=== PATIENT | male | born 1990 | race Caucasian/White ===

== ENCOUNTER 2024-06-03 14:05 | Emergency (ER) | payer OTHER, SELFPAY ==
[2024-06-03 14:13] VITALS: BP 134/90
--- NOTE | 2024-06-03 14:13 | ED.GENMED ---
ED Provider Triage
<Maria Luz Sanabria PA-C - Last Filed: 06/03/24 14:17>
-
Patient seen by provider in Triage?: Seen in Triage
Attestation: A medical screening examination has been initiated by a qualified medical provider. Based on the assessment performed at this time, it has been determined that an emergent medical condition may exist and the patient has been informed
that further medical evaluation and possible additional diagnostic testing may be needed.
HPI: 33yoM here with a FB to the L eye. C/o L eye pain, FB sensation, and blurred vision x 1 week. Seen at [facility] last night and found to have a 'cast iron' in his eye. FB unable to be removed. He was referred to ophthalmology but they would
not see him today without a referral.
GENERAL: Alert , in no apparent distress
EYE: No visual abnormalities.
NECK: Trachea midline
ENT: No visible abnormalities.
LUNGS: No acute respiratory distress
NEUROLOGICAL: Alert and oriented
SKIN: Skin intact. No visible changes.
MUSCULOSKELETAL: Moving extremities normally
PSYCH: Normal and appropriate interaction.
This is a medical evaluation conducted in person to initiate diagnostic evaluation and provide initial therapeutics. Please see further documentation by the treating clinician.
Injection to L eye noted on exam. No signs of globe rupture.
History of Present Illness
<Maria Luz Sanabria PA-C - Last Filed: 06/03/24 14:17>
General
Chief Complaint: Eye Problems
Time Seen by Provider: 06/03/24 15:28
<Tunde Barlow PA-C - Last Filed: 06/03/24 16:29>
General
Source: patient
History of Present Illness
History of Present Illness:
33-year-old male presenting to the emergency department for evaluation after he accidentally got a foreign body into his left eye about 1 week ago while at work, had mild discomfort but this gradually worsened over the weekend, went to [facility] who was unable to remove the foreign body so patient left, attempted to go to a ophthalmology office but due to insurance issues was unable to be seen so decided to come to the emergency department instead here. Patient notes
continued pain, redness, tearing and blurred vision. He states that his tetanus status was updated at [facility] and they gave him an antibiotic ointment which she has been using. He denies any fevers or other infectious symptoms.
Past History
<Maria Luz Sanabria PA-C - Last Filed: 06/03/24 14:17>
Past History
ED Past Medical History: Psychiatric (ADHD, anxiety) and Other (Chronic chest wall pain)
ED Past Surgical History: Cardiac (Tricuspid repair March 2013), Orthopedic and Other (Traumatic splenic laceration, pneumothorax with chest tube insertion January 2013)
Social History
Tobacco: Smoker
Alcohol: None
Personal: Single
Living: with family
Employment: Not employed
<Tunde Barlow PA-C - Last Filed: 06/03/24 16:29>
Social History
Drug: None
Review of Systems
<Tunde Barlow PA-C - Last Filed: 06/03/24 16:29>
Review of Systems
All Other Systems: ROS reviewed and negative except as documented in HPI and ROS
Phy Exam
<Tunde Barlow PA-C - Last Filed: 06/03/24 16:29>
Physical Exam
Physical Exam:
GENERAL: Alert , in no apparent distress
EYE: Left eye conjunctival injection and tearing, pupils 4 mm bilateral, PERRL, EOMI, no periorbital erythema, edema or tenderness. Tetracaine drops instilled with significant relief of pain. Small approximate 1 mm foreign body noted just over the
pupil of the left eye
VA: Right Eye 20/30, Left eye 20/50, both eyes 20/20
Head: Normocephalic atraumatic
NECK: Supple,
ENT: mmm.
LUNGS: no acute respiratory distress
NEUROLOGICAL: Alert and oriented
SKIN: Warm and dry, skin intact.
MUSCULOSKELETAL: well perfused.
PSYCH: Normal and appropriate interaction.
Scores
<Tunde Barlow PA-C - Last Filed: 06/03/24 16:29>
Heart Failure Risk
Heart Failure Risk Score: Not Applicable
Heart Score for Chest Pain Patients
STEMI patient?: Not applicable
Withdrawal Assessment of Alcohol
Withdrawal Assessment Completed?: Not applicable
Course
<Maria Luz Sanabria PA-C - Last Filed: 06/03/24 14:17>
Orders/Labs/Results
Orders:
Orders
06/03/24 16:22
Case Management Consult ONCE
Case Management Consult: Discharge Planning
Vital Signs
Initial and Last Documented VS:
Initial Vital Signs
Temp Pulse Resp BP Pulse Ox
98.8 F 85 18 134/90 98
06/03/24 14:13 06/03/24 14:13 06/03/24 14:13 06/03/24 14:13 06/03/24 14:13
Last Documented Vital Signs
Temp Pulse Resp BP Pulse Ox
98.8 F 85 18 134/90 98
06/03/24 14:13 06/03/24 14:13 06/03/24 14:13 06/03/24 14:13 06/03/24 14:13
<Tunde Barlow PA-C - Last Filed: 06/03/24 16:29>
Orders/Labs/Results
Orders:
Orders
06/03/24 16:22
Case Management Consult ONCE
Case Management Consult: Discharge Planning
Vital Signs
Initial and Last Documented VS:
Initial Vital Signs
Temp Pulse Resp BP Pulse Ox
98.8 F 85 18 134/90 98
06/03/24 14:13 06/03/24 14:13 06/03/24 14:13 06/03/24 14:13 06/03/24 14:13
Last Documented Vital Signs
Temp Pulse Resp BP Pulse Ox
98.8 F 85 18 134/90 98
06/03/24 14:13 06/03/24 14:13 06/03/24 14:13 06/03/24 14:13 06/03/24 14:13
<Tunde Barlow PA-C - Last Filed: 06/03/24 16:29>
MDM/Problems Addressed
MDM/Problems Addressed:
33-year-old male presenting to the emergency department for evaluation after sustaining foreign body to the left eye which patient believes his cast iron. Patient believes that this has been in his left eye for around 1 week. Concern for rust ring
as well as prolonged foreign body within the left eye. Will check visual acuity. Tetracaine administered with good relief of pain. Will discuss with ophthalmology and attempt to send patient directly to office for foreign body removal
<Tunde Barlow PA-C - Last Filed: 06/03/24 16:29>
*Pulse Oximetry
Patient hypoxic: no
*Critical Care Note
Total Time (30-74mins, 75-104mins- exclusive of procedures): Not Applicable
<Tunde Barlow PA-C - Last Filed: 06/03/24 16:29>
Patient Management
Discussion with other providers: [employer]
Escalation/DeEscalation of care consider admission/obs:
I spoke to ophthalmology who states patient can come directly to their office for foreign body removal. Patient notes that he currently does not have a ride and is going to have difficulty getting to the appointment. I consulted case management
who was able to order the patient a Lyft to get him to the office and patient notes that someone would be able to pick him up from the office to get him home. Patient has antibiotic ointment and tetanus was updated as mentioned above.
Ophthalmology can change antibiotic as they see fit. Patient is otherwise stable for discharge from the ER.
ED Attending Note
<Maria Luz Sanabria PA-C - Last Filed: 06/03/24 14:17>
-
Portions of this chart may have been created with voice recognition software.� Occasional wrong word or��sound alike� substitutions may have occurred due to the inherent limitations of voice recognition software.
Discharge Plan
Departure
Patient Disposition: Home (Routine Discharge)
Date of Disposition: 06/03/24
Time of Disposition: 16:04
Patient with high blood pressure during this ER visit?: No
Discharge Problem:
Foreign body of left eye
Instructions: Foreign Body in Eye (DC)
Prescriptions:
No Action
ibuprofen 800 MG tablet
800 mg PO Q8HPRN PRN (Reason: pain) Qty: 12 0RF
cephalexin [Keflex] 500 MG capsule
500 mg PO BID Qty: 14 0RF
indomethacin 50 MG capsule
50 mg PO TID Qty: 15 0RF
cephalexin 500 MG capsule
500 mg PO QID Qty: 39 0RF
clonazepam 1 MG tablet
1 mg PO TID Qty: 15 0RF
temazepam 15 MG capsule
15 mg PO HSPRN PRN (Reason: sleep) Qty: 5 0RF
cephalexin 500 MG capsule
500 mg PO TID Qty: 30 0RF
Referrals:
Mikki Goddard NP [Family Provider] -
Hoda Rowley MD [Active] - (Go directly to office)
Interventions
Interventions:
*Risk Screen - Suicide Last Done: 06/03/24 14:13
*General Assessment Last Done: 06/03/24 14:13
*Neglect/Abuse Screening Last Done: 06/03/24 14:13
*Nursing Disposition Last Done: 06/03/24 16:17
Discharge Date and Time
Discharge Date/Time: 06/03/24 16:18
Print Language: UPPER SORBIAN
--- NOTE | 2024-06-03 16:07 | CM ---
CM was consulted to assist with transportation to urgent outpatient ophthalmology appointment for removal of foreign body. CM provide patient with Lyft ride. Patient will secure transporation to home from this appointment. CM further provided
information on [employer] transportation assistance.
== END 2024-06-03 16:18 | disposition home or self-care (01) ==
LOC: EMR 14:05
PROVIDERS: EMERGENCY PHYSICIAN Emergency Medicine; FAMILY PHYSICIAN Family Medicine
DX: T15.92XA Foreign body on external eye, part unspecified, left eye, initial encounter (principal); H53.8 Other visual disturbances; W44.9XXA Unspecified foreign body entering into or through a natural orifice, initial encounter; Y93.89 Activity, other specified; Y92.89 Other specified places as the place of occurrence of the external cause; Y99.0 Civilian activity done for income or pay; Z59.71 Insufficient health insurance coverage; F90.9 Attention-deficit hyperactivity disorder, unspecified type; F41.9 Anxiety disorder, unspecified; F17.200 Nicotine dependence, unspecified, uncomplicated; Z88.6 Allergy status to analgesic agent; Z88.1 Allergy status to other antibiotic agents; Z88.8 Allergy status to other drugs, medicaments and biological substances
CPT/HCPCS: 99283